=== PATIENT | male | born 1960 | race Caucasian/White ===

== ENCOUNTER 2016-11-19 06:50 | Outpatient (CLI) | payer MEDICARE, MEDICAID ==
[~2016-11-19] VITALS: Ht 175.3 cm; Wt 95.3 kg
--- NOTE | ~2016-11-19 | CATH ---
Cardiac Diagnostic + PCI Report Demographics Patient Name CHEYANNE Macias Gender Male Date of 1960 Age 55 year(s) Patient Number [id number] Date of Study 11/19/2016 Visit Number [id number] Room Number G6399 [place] [id number] Ht 175.26 cm Wt 95.3 kg Referring [facility] Primary Physician Physician MD Niyah Chavez Performing [facility] Secondary Physician Physician Katarina Chavez Diagnostic [facility] Assisting Physician Physician Scott Interventional [facility] Physician Literary Writer Physician Katarina ALDRIDGE Findings and Conclusions Diagnostic Findings and Conclusion L main:Distal 20% tapering LAD: Proximal 30-40% stenosis L Cx: Mid 40-50% stenosis RCA:Mid 60% eccentric stenosis. Diagnostic Recommendations FFR of RCA Interventional Findings and Conclusion FFR of RCA 0.88 Recommend medical therapy Interventional Recommendations Medical treatment Smoking Cessation Procedure Description The patient was brought to the diagnostic cardiac catheterization-EP laboratory in the fasting, non-sedated state. Informed consent was obtained in the written and verbal form after the risks and benefits were explained. The patient had no further questions and agreed to proceed. The planned puncture-incision site(s) were shaved and prepped with ChloraPrep and draped in the usual sterile manner. Conscious sedation, supplemental oxygen, and pain control medications were delivered by a registered nurse under physician guidance. Surface ECG rhythm, blood pressure measurement, and pulse oximetry were monitored throughout the procedure. Arterial access. The access site on right wrist was infiltrated with lidocaine. The vessel was entered with the Seldinger technique. A sheath was advanced into the vessel and used for catheter placement. Selective left coronary angiography. A catheter was advanced into the left coronary vessel ostium under Fluoroscopic guidance. Contrast was injected by hand. Images were obtained in multiple projections. Selective right coronary angiography. A catheter was advanced into the right coronary vessel ostium under fluoroscopic guidance. Contrast was injected by hand. Images were obtained in multiple projections. Left heart catheterization. A catheter was advanced across the aortic valve to the left ventricle under fluoroscopic guidance. Resting hemodynamics were obtained. FFR measurement was performed. The right coronary artery was entered with a guiding catheter. The FFR wire was normalized and then advanced across the lesion. Maximum hyperemia was achieved using adenosine. Arterial artery hemostasis was achieved. The patient was transferred to a regular nursing floor via cart accompanied by a nurse. The patient left the laboratory in stable condition. Diagnostic Cath Status: Elective Procedure Procedure Type Diagnostic procedure:Angiography:, Coronary Angios /[facility] PCI procedure:Additional Imaging:, FFR/iFR:, Initial Vessel Indications: Dyspnea and Abnormal Stress Test. The procedure was explained in detail to the patient. Risks, complications and alternative treatments were reviewed. Written consent was obtained. Medications Reviewed with Patient prior to Procedure. Angiographic Findings Dominance: Right Cardiac Arteries and Lesion Findings LMCA: Lesion on LMCA: Distal subsection.20% stenosis . Comments:10-20% tapering LAD: Lesion on Prox LAD: 40% stenosis . LCx: Lesion on Mid CX: 50% stenosis . RCA: Lesion on Mid RCA: 60% stenosis .The lesion was eccentric.Culprit lesion. FFR + + + + !FFR !Stage/Medication !Dosage ! + + + + !0.88 !Adenosine (I.V) !140 ! + + + + Devices used - Verrata Pressure Wire. Number of passes: 1. Ramus: small caliber vessel Coronary Tree Procedure Data Procedure Date Date: 11/19/2016Start: 10:12 AMEnd: 11:15 AM Entry Locations - Retrograde Percutaneous access was performed through the Right Radial artery (Primary location). A 6 Fr sheath was inserted. Closure Comments: 13 cc of air in the R band deployed by Lux. Procedure Medications Order and Administration + + + + + !Time !Medication !Dosage !Route ! + + + + + !11/19/2016 10:08 AM !Versed !1 mg !I.V. ! + + + + + !11/19/2016 10:08 AM !Fentanyl !25 mcg !I.V. ! + + + + + !11/19/2016 10:14 AM !Fentanyl !25 mcg !I.V. ! + + + + + !11/19/2016 10:14 AM !Oxygen !2 l/min !NC ! + + + + + !11/19/2016 10:16 AM !Radial Nitroglycerin !100 mcg !I.A. ! + + + + + !11/19/2016 10:17 AM !Radial Verapamil !2.5 mg !I.A. ! + + + + + !11/19/2016 10:20 AM !0.9% NaCl !500 ml !I.V. bolus ! + + + + + !11/19/2016 10:20 AM !Heparin (ACC_3) !4000 units !I.V. bolus ! + + + + + !11/19/2016 10:53 AM !Heparin (ACC_3) !2000 units !I.V. bolus ! + + + + + !11/19/2016 10:57 AM !Adenosine (IV) !140 mcg/kg/min !I.V. drip ! + + + + + !11/19/2016 11:00 AM !Adenosine (IV) !140 !I.V. drip ! + + + + + Devices Used - A5 Fr. BS JR 4 Diag. Catheterwas used for:Right coronary angiography.Unable to cannulate the vessel. - A5 Fr. BS JL 3.5 Diag. Catheterwas used for:Left coronary angiography. - A5 Fr. JJ 3DRC Diag. Catheterwas used for:Right coronary angiography. - A6 Fr. 3DRC JJ Guide Catheterwas used for:RCA Intervention. Contrast Material - Isovue 80026 ml Fluoroscopy Time: Diagnostic: 13:24 minutes. Total: 13:24 minutes. Fluoroscopy Dose: Diagnostic: 1596 mGy. Total: 1596 mGy. Estimated Blood Loss: 10 ml. Medical History Allergies - Sulfa. Risk Factors The patient risk factors include:hypercholesterolemia, hypertension, chronic lung disease, last creatinine: 1 mg/dl, creatinine clearance: 112.51 ml/min, dyslipidemia, Current/Recent(w/in 1 year) tobacco use and prior [place] . Admission Data Admission Date: 11/19/2016 Admission Time: 06:50 AM Admit Source: Other Insurance Payors: Medicare. Admission Medications + +------+------+ + + + + !Medication !Dosage!Times !Last !Last !Administered !Comments ! ! ! !Per !Delivery !Delivery ! ! ! ! ! !Day !Date !Time ! ! ! + +------+------+ + + + + !Aspirin ! ! ! ! !Yes ! ! !(any) ! ! ! ! ! ! ! + +------+------+ + + + + !Statin ! ! ! ! !Yes ! ! !(any) ! ! ! ! ! ! ! + +------+------+ + + + + !Beta ! ! ! ! !Yes ! ! !Kota ! ! ! ! ! ! ! !(any) ! ! ! ! ! ! ! + +------+------+ + + + + Clinical Evaluation Leading to Procedure - The patient's CAD presentation was assessed as: Stable angina. - The patient's anginal syndrome during the past two weeks was assessed as: Class II according to the [place] Cardiovascular Society Classification System (CCS). Anti-anginal medications were prescribed during the past two weeks. The medications are: Beta Blockers and Long Acting Nitrates. - The reason for the patient's mechanical laboratory technician visit is pre-operative evaluation before non-cardiac surgery. Hemodynamics Condition: Rest O2 Consumption: Estimated: 254.79Heart Rate: 76 bpm Pressures (mmHg) +-----+ + !Site !Pressure ! +-----+ + !AO !/68 (78) ! +-----+ + !AO !9872 (85) ! +-----+ + !LV !94/8 ,9 ! +-----+ + !LV !94/9 ,11 ! +-----+ + !AO !109/64 (81) ! +-----+ + !LV !93/9 ,10 ! +-----+ + !AO !101/70 (85) ! +-----+ + !AO !112/76 (93) ! +-----+ + Valve Gradients and Areas + +---------+---------+---------+ +---------+ + !Valve !Peak !Mean !Area !Index !Flow !Source ! + +---------+---------+---------+ +---------+ + !Aortic !0 !0 ! ! ! ! ! + +---------+---------+---------+ +---------+ + !Aortic !0 !0 ! ! ! ! ! + +---------+---------+---------+ +---------+ + Shunts Oxygen Values O2 Capacity 208.08 O2 Consumption 254.79 Discharge Data Discharge Date: 11/19/2016 Hospital Status: Outpatient Signatures dtt: KATARINA ONOFRE dtd: 11/19/16 [facility] Physician Self Edit
[~2016-11-19 06:50] MED LIST: ASPIRIN EC81 MG PO; CLARITIN10 MG PO; COREG6.25 MG PO; FLONASE 50 MCG/16 GM NOSE; GABAPENTIN100 MG PO; IMDUR30 MG PO; LIPITOR40 MG PO; NEURONTIN100 MG PO; NITROSTAT0.4 MG SL
[2016-11-19 07:57] LABS: BASOPHIL # 0.1 K/uL (0.0-0.2); BASOPHIL % 0.8 %; EOSINOPHIL # 0.2 K/uL (0.0-0.5); EOSINOPHIL % 1.8 %; HEMATOCRIT 46.6 % (37.0-53.0); HEMOGLOBIN 15.3 g/dL (12.0-17.0); IMMATURE GRANULOCYTE # 0.1 K/uL (0.0-0.3); IMMATURE GRANULOCYTE % 0.7 %; LYMPHOCYTE # 2.7 K/uL (0.8-4.0); LYMPHOCYTE % 31.2 %; MCH 27.3 pg (27.0-34.0); MCHC 32.8 gm/dL (32.0-36.5); MCV 83.2 fl (83.0-98.0); MONOCYTE # 0.6 K/uL (0.0-1.0); MONOCYTE % 7.2 %; MPV 8.5 fl (9.4-12.4); NEUTROPHIL # (ANC) 5.1 K/uL (1.4-9.0); NEUTROPHIL % 58.3 %; NRBC % 0 /100WBC (0-0.00); PLATELET COUNT 210 K/uL (150-450); RDW-CV 16.1 % (11.9-14.6); WBC 8.7 K/uL (4.0-11.0)
[2016-11-19 08:04] LABS: PROTIME 10.1 SECONDS (9.6-11.1)
[2016-11-19 08:13] LABS: ALBUMIN 3.2 gm/dL (3.5-5.0); ALK PHOS 105 IU/L (33-138); ALT 29 IU/L (12-78); ANION GAP 13.8 (10.0-19.0); AST 17 IU/L (10-40); BLOOD UREA NITROGEN 11 mg/dL (6-24); CALCIUM 8.4 mg/dL (8.5-10.5); CHLORIDE 108 mMol/L (96-110); CO2 26 mMol/L (22-32); ESTIMATED GFR (MDRD EQUATION) > 60; POTASSIUM 3.8 mMol/L (3.7-5.1); SODIUM 144 mMol/L (135-145); TOTAL BILIRUBIN 0.6 mg/dL (0.0-1.5); TOTAL PROTEIN 6.8 g/dL (6.0-8.4)
== END 2016-11-19 14:18 | disposition disaster alternative care site (69) ==
LOC: GCAT 06:50 → GPCU 06:50 → GCAT 07:00
PROVIDERS: Internal Medicine Interventional Cardiology
PROC: 4A023N7 Measurement of Cardiac Sampling and Pressure, Left Heart, Percutaneous Approach (ICD-10-PCS; principal; 2016-11-19)
PROC: B2111ZZ Fluoroscopy of Multiple Coronary Arteries using Low Osmolar Contrast (ICD-10-PCS; principal; 2016-11-19)
PROC: 4A033BC Measurement of Arterial Pressure, Coronary, Percutaneous Approach (ICD-10-PCS; principal; 2016-11-19)
DX: I25.119 Atherosclerotic heart disease of native coronary artery with unspecified angina pectoris (principal); I10 Essential (primary) hypertension; E78.5 Hyperlipidemia, unspecified; J44.9 Chronic obstructive pulmonary disease, unspecified; Z86.718 Personal history of other venous thrombosis and embolism; Z86.711 Personal history of pulmonary embolism; Z87.01 Personal history of pneumonia (recurrent); Z87.891 Personal history of nicotine dependence; Z96.652 Presence of left artificial knee joint; Z79.82 Long term (current) use of aspirin; Z79.51 Long term (current) use of inhaled steroids; Z79.899 Other long term (current) drug therapy; M19.90 Unspecified osteoarthritis, unspecified site; I25.2 Old myocardial infarction; I71.4 Abdominal aortic aneurysm, without rupture; N40.0 Benign prostatic hyperplasia without lower urinary tract symptoms; K42.9 Umbilical hernia without obstruction or gangrene
CPT/HCPCS: C1769; C1887; J0153; J1644; J2001; J2250; J2370; J3010; J7030